=== PATIENT | male | born 1955 | race Caucasian/White ===

== ENCOUNTER → 2016-10-10 | Outpatient (CLI) | payer OTHER ==
[~2016-10-10] MED LIST: 'PARAFON FORTE500 M1 PO; ACULAR 3 ML3 M1 OP; ANAPROX DS550 MG PO; ATIVAN1 MG PO; CLARITIN LIQUI-10 MG PO; HYDROCODONE BIT1 T11 PO; KEFLEX500 M1 PO; LISINOPRIL5 MG PO; METOPROLOL SUC100 M1 PO; NAPROSYN500 MG PO; NKHM; NORCO 10-325 T1 EACH PO; NORCO 5-325 TA1 EACH PO; NORFLEX100 MG PO; Tobrex Ophth S2.5 ML OPH; VICODIN 5/500 505 MG PO; VITAMIN D50000 UNIT PO
== END | disposition home or self-care (01) ==
LOC: RAD 09:37
DX: M51.36 Other intervertebral disc degeneration, lumbar region (principal); M47.896 Other spondylosis, lumbar region; G89.29 Other chronic pain

== ENCOUNTER → 2016-11-02 | Outpatient (CLI) | payer OTHER | LOC: CT 09:55 | DX: M51.26 Other intervertebral disc displacement, lumbar region (principal); M48.07 Spinal stenosis, lumbosacral region; M48.05 Spinal stenosis, thoracolumbar region; M96.1 Postlaminectomy syndrome, not elsewhere classified; Z91.81 History of falling ==

== ENCOUNTER → 2017-01-06 | Outpatient (CLI) | payer OTHER | END | disposition home or self-care (01) | LOC: MRI 08:48 | DX: Z01.818 Encounter for other preprocedural examination (principal); M47.896 Other spondylosis, lumbar region; M51.27 Other intervertebral disc displacement, lumbosacral region; M48.061 Spinal stenosis, lumbar region without neurogenic claudication ==

== ENCOUNTER 2017-05-02 09:15 | Inpatient (IN) | payer OTHER ==
[2017-05-02] VITALS (9 sets, daily range): BP systolic 112–150; BP diastolic 61–97
[~2017-05-02] VITALS: Ht 178 cm; Wt 100.0 kg
[2017-05-02] MEDS ORDERED: TOPROL XL50 M1 PO (09:28)
[2017-05-02] MEDS ORDERED: CLARITIN10 MG PO (09:29)
[2017-05-02] MEDS ORDERED: LOSARTAN-HCTZ1 EAC1 PO (09:29)
[2017-05-02 10:03] LABS: BASO # 0.2 10*3/uL (0.0-0.1); BASO % 1.2 % (0.0-1.0); EOS # 1.7 10*3/uL (0.0-0.4); EOS % 14.3 % (1.0-4.0); HEMATOCRIT 47.4 % (42.0-52.0); LYMPH # 3.3 10*3/uL (1.3-4.4); LYMPH % 27.1 % (27.0-41.0); MEAN CORPUSCULAR HGB 30.9 pg (27.0-31.0); MEAN CORPUSCULAR HGB CONC 35.9 g/dl (33.0-37.0); MEAN PLATELET VOLUME 11.1 fl (9.6-12.3); MONO % 8.2 % (3.0-9.0); NEUT # 5.9 10*3/uL (2.3-7.9); PLATELET COUNT AUTOMATED 241 10*3/uL (130-400); RED BLOOD COUNT 5.51 10*6/uL (4.50-5.90); RED CELL DISTRI WIDTH 12.9 % (0-14.5); WHITE BLOOD COUNT 12.1 10*3/uL (4.8-10.8)
[2017-05-02 10:17] LABS: ALBUMIN 3.5 gm/dl (3.1-4.5); ALKALINE PHOSPHATASE 48 U/L (45-117); BUN 19 mg/dl (7-24); CHLORIDE 105 mmol/L (98-107); CREATININE 1.21 mg/dL (0.70-1.30); LIPASE 172 U/L (73-393); POTASSIUM 3.8 mmol/L (3.5-5.1); SGOT/AST 16 IU/L (3-35); SGPT/ALT 34 U/L (12-78); SODIUM 140 mmol/L (136-145); TOTAL PROTEIN 6.8 gm/dL (6.4-8.2)
[2017-05-02 10:20] LABS: BILIRUBIN NEGATIVE (NEGATIVE); BLOOD NEGATIVE (NEGATIVE); CLARITY CLEAR (CLEAR); COLOR YELLOW (YELLOW); GLUCOSE NEGATIVE (NEGATIVE); KETONE NEGATIVE (NEGATIVE); LEUKO ESTERASE NEGATIVE (NEGATIVE); NITRITE NEGATIVE (NEGATIVE); SPECIFIC GRAVITY >= 1.030 (1.005-1.030); UROBILINOGEN 0.2 E.U./dl (0.2-1.0)
[2017-05-02 10:27] LABS: RBC 0-2 rbc/hpf (0-2); WBC 0-2 wbc/hpf (0-5)
[2017-05-03] VITALS (10 sets, daily range): BP systolic 112–146; BP diastolic 60–92
[2017-05-03 07:06] LABS: BASO # 0.1 10*3/uL (0.0-0.1); BASO % 1.2 % (0.0-1.0); EOS # 1.4 10*3/uL (0.0-0.4); HEMATOCRIT 45.1 % (42.0-52.0); HEMOGLOBIN 15.8 g/dl (14.0-18.0); LYMPH # 2.6 10*3/uL (1.3-4.4); LYMPH % 29.6 % (27.0-41.0); MEAN CELL VOLUME 87.2 fl (80.0-94.0); MEAN CORPUSCULAR HGB 30.6 pg (27.0-31.0); MEAN PLATELET VOLUME 11.5 fl (9.6-12.3); MONO # 0.8 10*3/uL (0.1-1.0); MONO % 9.4 % (3.0-9.0); NEUT # 3.9 10*3/uL (2.3-7.9); NEUT % 43.6 % (47.0-73.0); PLATELET COUNT AUTOMATED 186 10*3/uL (130-400); RED BLOOD COUNT 5.17 10*6/uL (4.50-5.90); RED CELL DISTRI WIDTH 13.2 % (0-14.5); WHITE BLOOD COUNT 8.9 10*3/uL (4.8-10.8)
[2017-05-03 07:35] LABS: BUN 12 mg/dl (7-24); CHLORIDE 108 mmol/L (98-107); CREATININE 1.08 mg/dL (0.70-1.30); PHOSPHOROUS 2.2 mg/dL (2.5-4.9); POTASSIUM 3.8 mmol/L (3.5-5.1); SGOT/AST 17 IU/L (3-35); SGPT/ALT 33 U/L (12-78); SODIUM 142 mmol/L (136-145); TOTAL PROTEIN 5.8 gm/dL (6.4-8.2); TRIGLYCERIDES 121 mg/dl (<150); VLDL CHOLESTEROL 24 mg/dL (6-40)
[2017-05-03 07:39] LABS: ALKALINE PHOSPHATASE 38 U/L (45-117); CHOLESTEROL 118 mg/dL (<200); FREE T4 0.91 ng/dl (0.76-1.46); HDL CHOLESTEROL 37 mg/dl (40-60); LDL CHOLESTEROL 57 mg/dL (9-159)
[2017-05-03 08:25] LABS: VITAMIN D, 25-HYDROXY 22.8 ng/mL (30-100)
[2017-05-03] MEDS ORDERED: NORCO 5-325 TA1 EACH PO (15:24)
== END 2017-05-03 15:50 | disposition home or self-care (01) | DRG 419 ==
LOC: ED 09:15 → EDHOLD 13:40 → 5E 13:40
PROVIDERS: Physician Assistant; Registered Nurse
PROC: 0FT44ZZ Resection of Gallbladder, Percutaneous Endoscopic Approach (ICD-10-PCS; principal; 2017-05-03)
PROC: BF131ZZ Fluoroscopy of Gallbladder and Bile Ducts using Low Osmolar Contrast (ICD-10-PCS; 2017-05-03)
DX: K80.66 Calculus of gallbladder and bile duct with acute and chronic cholecystitis without obstruction (principal); K76.0 Fatty (change of) liver, not elsewhere classified; D72.829 Elevated white blood cell count, unspecified; F12.90 Cannabis use, unspecified, uncomplicated; I10 Essential (primary) hypertension; M54.9 Dorsalgia, unspecified; F41.9 Anxiety disorder, unspecified; G89.29 Other chronic pain; Z82.0 Family history of epilepsy and other diseases of the nervous system; Z72.0 Tobacco use; Z72.89 Other problems related to lifestyle; Z88.8 Allergy status to other drugs, medicaments and biological substances; Z79.899 Other long term (current) drug therapy; Z82.49 Family history of ischemic heart disease and other diseases of the circulatory system

== ENCOUNTER → 2017-08-11 | Outpatient (CLI) | payer OTHER ==
[~2017-08-11] MED LIST changes: +CLARITIN10 MG PO; +LOSARTAN-HCTZ1 EAC1 PO; +TOPROL XL50 M1 PO
== END | disposition home or self-care (01) ==
LOC: LAB 10:15
PROVIDERS: Nurse Practitioner Primary Care
DX: R60.9 Edema, unspecified (principal); R21 Rash and other nonspecific skin eruption; W57.XXXA Bitten or stung by nonvenomous insect and other nonvenomous arthropods, initial encounter

== ENCOUNTER → 2017-09-19 | Outpatient (CLI) | payer OTHER ==
[~2017-09-19] MED LIST changes: +ACULAR 0.5%3 ML OPH
== END | disposition home or self-care (01) ==
LOC: ORTHO 03:28
DX: M19.032 Primary osteoarthritis, left wrist (principal)

== ENCOUNTER → 2017-09-25 | Outpatient (CLI) | payer OTHER | END | disposition home or self-care (01) | LOC: RAD 09:05 | DX: M18.12 Unilateral primary osteoarthritis of first carpometacarpal joint, left hand (principal) ==

== ENCOUNTER 2017-09-28 18:19 | Emergency (ER) | payer OTHER ==
[~2017-09-28] VITALS: Ht 177.8 cm; Wt 95.3 kg
[~2017-09-28 18:19] MED LIST changes: -ACULAR 0.5%3 ML OPH
== END 2017-09-28 18:56 | disposition home or self-care (01) ==
LOC: ED 18:19
DX: T15.81XA Foreign body in other and multiple parts of external eye, right eye, initial encounter (principal); F17.200 Nicotine dependence, unspecified, uncomplicated; F12.10 Cannabis abuse, uncomplicated; G89.29 Other chronic pain; I10 Essential (primary) hypertension; Z79.899 Other long term (current) drug therapy; Z88.8 Allergy status to other drugs, medicaments and biological substances; X58.XXXA Exposure to other specified factors, initial encounter; Y93.89 Activity, other specified; Y92.89 Other specified places as the place of occurrence of the external cause; Y99.9 Unspecified external cause status

== ENCOUNTER 2017-10-15 12:17 | Emergency (ER) | payer OTHER ==
[~2017-10-15] VITALS: Ht 177.8 cm; Wt 95.3 kg
[2017-10-15] MEDS ORDERED: Tobrex Ophth S2.5 ML OPH (13:27)
[2017-10-15] MEDS ORDERED: ACULAR 0.5%3 ML OPH (13:27)
== END 2017-10-15 13:32 | disposition home or self-care (01) ==
LOC: ED 12:17
DX: T15.01XA Foreign body in cornea, right eye, initial encounter (principal); F17.200 Nicotine dependence, unspecified, uncomplicated; F12.10 Cannabis abuse, uncomplicated; Z79.899 Other long term (current) drug therapy; Z88.8 Allergy status to other drugs, medicaments and biological substances; X58.XXXA Exposure to other specified factors, initial encounter; Y93.89 Activity, other specified; Y92.89 Other specified places as the place of occurrence of the external cause; Y99.9 Unspecified external cause status

== ENCOUNTER → 2017-10-19 | Outpatient (CLI) | payer OTHER ==
[~2017-10-19] MED LIST changes: +ACULAR 0.5%3 ML OPH
== END | disposition home or self-care (01) ==
LOC: MRI 09:38
DX: Z01.818 Encounter for other preprocedural examination (principal); M18.12 Unilateral primary osteoarthritis of first carpometacarpal joint, left hand; M67.432 Ganglion, left wrist

== ENCOUNTER → 2018-03-01 | Outpatient (CLI) | payer OTHER ==
[2018-03-01 08:07] LABS: HEMATOCRIT 49.6 % (42.0-52.0); HEMOGLOBIN 17.4 g/dl (14.0-18.0); MEAN CORPUSCULAR HGB 30.5 pg (27.0-31.0); MEAN CORPUSCULAR HGB CONC 35.1 g/dl (33.0-37.0); MEAN PLATELET VOLUME 10.9 fl (9.6-12.3); PLATELET COUNT AUTOMATED 227 10*3/uL (130-400); RED CELL DISTRI WIDTH 13.1 % (0-14.5); WHITE BLOOD COUNT 10.5 10*3/uL (4.8-10.8)
[2018-03-01 08:58] LABS: ATYPICAL LYMPHS 3 % (0-0); BASOPHILS 3 % (0-1); TOTAL CELLS COUNTED 100 #CELLS
[2018-03-01 08:59] LABS: PLATELET SUFFICIENCY NORMAL (NORMAL)
== END | disposition home or self-care (01) ==
LOC: LAB 07:50
PROVIDERS: Nurse Practitioner Primary Care
DX: D72.810 Lymphocytopenia (principal)

== ENCOUNTER → 2018-10-25 | Outpatient (CLI) | payer OTHER ==
[~2018-10-25] MED LIST changes: +ZOFRAN4 MG PO
== END | disposition home or self-care (01) ==
LOC: RAD 07:14
DX: M25.511 Pain in right shoulder (principal)

== ENCOUNTER 2019-03-16 08:15 | Emergency (ER) | payer MEDICARE ==
[~2019-03-16] VITALS: Ht 177.8 cm; Wt 89.4 kg
[2019-03-16 08:54] LABS: BASO # 0.1 10*3/uL (0.0-0.1); BASO % 0.8 % (0.0-1.0); EOS # 0.6 10*3/uL (0.0-0.4); EOS % 4.6 % (1.0-4.0); HEMATOCRIT 49.3 % (42.0-52.0); HEMOGLOBIN 17.1 g/dl (14.0-18.0); LYMPH # 2.9 10*3/uL (1.3-4.4); LYMPH % 21.7 % (27.0-41.0); MEAN CELL VOLUME 89.2 fl (80.0-94.0); MEAN CORPUSCULAR HGB 30.9 pg (27.0-31.0); MEAN CORPUSCULAR HGB CONC 34.7 g/dl (33.0-37.0); MONO # 1.4 10*3/uL (0.1-1.0); MONO % 10.8 % (3.0-9.0); NEUT # 8.2 10*3/uL (2.3-7.9); NEUT % 61.8 % (47.0-73.0); PLATELET COUNT AUTOMATED 247 10*3/uL (130-400); RED BLOOD COUNT 5.53 10*6/uL (4.50-5.90); RED CELL DISTRI WIDTH 12.7 % (0-14.5); WHITE BLOOD COUNT 13.2 10*3/uL (4.8-10.8)
[2019-03-16 09:10] LABS: ALBUMIN 3.3 gm/dl (3.1-4.5); ALKALINE PHOSPHATASE 56 U/L (45-117); BUN 18 mg/dl (7-24); CHLORIDE 106 mmol/L (98-107); CREATININE 0.98 mg/dL (0.70-1.30); POTASSIUM 3.8 mmol/L (3.5-5.1); SGOT/AST 17 IU/L (3-35); SGPT/ALT 47 U/L (12-78); SODIUM 139 mmol/L (136-145); TOTAL PROTEIN 6.9 gm/dL (6.4-8.2)
[2019-03-16] MEDS ORDERED: PERCOCET 5-3251 EACH PO (10:59)
== END 2019-03-16 11:04 | disposition home or self-care (01) ==
LOC: ED 08:15
PROVIDERS: Emergency Medicine
DX: G89.18 Other acute postprocedural pain (principal); M25.532 Pain in left wrist; L53.9 Erythematous condition, unspecified; L29.9 Pruritus, unspecified; G89.29 Other chronic pain; I10 Essential (primary) hypertension; F17.200 Nicotine dependence, unspecified, uncomplicated; Z88.8 Allergy status to other drugs, medicaments and biological substances; Z79.899 Other long term (current) drug therapy; Z79.2 Long term (current) use of antibiotics

== ENCOUNTER 2019-10-13 21:36 | Emergency (ER) | payer OTHER, MEDICAID ==
[~2019-10-13] VITALS: Ht 177.8 cm; Wt 99.3 kg
[~2019-10-13 21:36] MED LIST changes: +PERCOCET 5-3251 EACH PO
== END 2019-10-13 22:18 | disposition home or self-care (01) ==
LOC: ED 21:36
DX: S05.02XA Injury of conjunctiva and corneal abrasion without foreign body, left eye, initial encounter (principal); I10 Essential (primary) hypertension; F41.9 Anxiety disorder, unspecified; Z88.8 Allergy status to other drugs, medicaments and biological substances; Z87.891 Personal history of nicotine dependence; Z79.899 Other long term (current) drug therapy; X58.XXXA Exposure to other specified factors, initial encounter; Y93.89 Activity, other specified; Y92.89 Other specified places as the place of occurrence of the external cause; Y99.8 Other external cause status

== ENCOUNTER → 2019-11-13 | Outpatient (CLI) | payer OTHER, MEDICAID | END | disposition home or self-care (01) | LOC: RAD 09:37 | DX: M48.02 Spinal stenosis, cervical region (principal) ==

== ENCOUNTER → 2020-01-09 | Outpatient (CLI) | payer OTHER, MEDICAID | END | disposition home or self-care (01) | LOC: MRI 00:21 | PROVIDERS: ATTEND Orthopaedic Surgery Orthopaedic Surgery of the Spine | DX: M50.122 Cervical disc disorder at C5-C6 level with radiculopathy (principal) ==

== ENCOUNTER 2020-12-04 11:21 | Emergency (ER) | payer OTHER, MEDICAID ==
[~2020-12-04] VITALS: Ht 177.8 cm; Wt 102.1 kg
[2020-12-04 12:28] LABS: BASO # 0.1 10*3/uL (0.0-0.1); BASO % 1.5 % (0.0-1.0); EOS % 11.7 % (1.0-4.0); HEMATOCRIT 47.7 % (42.0-52.0); LYMPH # 2.5 10*3/uL (1.3-4.4); LYMPH % 29.7 % (27.0-41.0); MEAN CORPUSCULAR HGB 30.4 pg (27.0-31.0); MEAN CORPUSCULAR HGB CONC 34.2 g/dl (33.0-37.0); MEAN PLATELET VOLUME 10.8 fl (9.6-12.3); MONO # 0.8 10*3/uL (0.1-1.0); MONO % 9.7 % (3.0-9.0); NEUT # 3.9 10*3/uL (2.3-7.9); NEUT % 46.9 % (47.0-73.0); PLATELET COUNT AUTOMATED 197 10*3/uL (130-400); RED BLOOD COUNT 5.36 10*6/uL (4.50-5.90); RED CELL DISTRI WIDTH 12.8 % (0-14.5); WHITE BLOOD COUNT 8.3 10*3/uL (4.8-10.8)
[2020-12-04 12:50] LABS: ALBUMIN 3.5 gm/dl (3.1-4.5); ALKALINE PHOSPHATASE 52 U/L (45-117); BUN 20 mg/dl (7-24); CHLORIDE 106 mmol/L (98-107); LIPASE 112 U/L (73-393); POTASSIUM 3.9 mmol/L (3.5-5.1); SGOT/AST 18 IU/L (3-35); SGPT/ALT 50 U/L (12-78); SODIUM 138 mmol/L (136-145); TOTAL PROTEIN 6.8 gm/dL (6.4-8.2)
[2020-12-04 12:51] LABS: TROPONIN I < 0.015 ng/ml (<0.045)
[2020-12-04] MEDS ORDERED: CLONIDINE HCL0.1 MG PO (13:06)
[2020-12-04] MEDS ORDERED: PROTONIX40 MG PO (13:06)
== END 2020-12-04 13:15 | disposition home or self-care (01) ==
LOC: ED 11:21
PROVIDERS: Family Medicine
DX: I16.0 Hypertensive urgency (principal); F17.200 Nicotine dependence, unspecified, uncomplicated; Z88.8 Allergy status to other drugs, medicaments and biological substances; Z79.899 Other long term (current) drug therapy

== ENCOUNTER 2021-01-08 08:24 | Emergency (ER) | payer OTHER, MEDICAID ==
[~2021-01-08] VITALS: Wt 104.3 kg
[~2021-01-08 08:24] MED LIST changes: +CLONIDINE HCL0.1 MG PO; +PROTONIX40 MG PO
[2021-01-08 10:07] LABS: BASO # 0.1 10*3/uL (0.0-0.1); EOS # 0.6 10*3/uL (0.0-0.4); HEMATOCRIT 47.6 % (42.0-52.0); LYMPH # 1.8 10*3/uL (1.3-4.4); LYMPH % 18.9 % (27.0-41.0); MEAN CELL VOLUME 88.6 fl (80.0-94.0); MEAN CORPUSCULAR HGB 29.8 pg (27.0-31.0); MEAN CORPUSCULAR HGB CONC 33.6 g/dl (33.0-37.0); MEAN PLATELET VOLUME 10.9 fl (9.6-12.3); MONO # 0.9 10*3/uL (0.1-1.0); MONO % 9.2 % (3.0-9.0); NEUT % 64.5 % (47.0-73.0); PLATELET COUNT AUTOMATED 205 10*3/uL (130-400); RED BLOOD COUNT 5.37 10*6/uL (4.50-5.90); RED CELL DISTRI WIDTH 12.5 % (0-14.5); WHITE BLOOD COUNT 9.4 10*3/uL (4.8-10.8)
[2021-01-08 10:21] LABS: ACT PARTIAL THROMBO TIME 25.4 SECONDS (20.0-32.1)
[2021-01-08 10:25] LABS: ALBUMIN 3.5 gm/dl (3.1-4.5); ALKALINE PHOSPHATASE 56 U/L (45-117); BUN 17 mg/dl (7-24); CHLORIDE 107 mmol/L (98-107); CREATININE 1.12 mg/dL (0.70-1.30); POTASSIUM 4.1 mmol/L (3.5-5.1); SGOT/AST 17 IU/L (3-35); SGPT/ALT 45 U/L (12-78); SODIUM 139 mmol/L (136-145); TOTAL PROTEIN 6.9 gm/dL (6.4-8.2)
[2021-01-08 10:27] LABS: TROPONIN I < 0.015 ng/ml (<0.045)
[2021-01-08] MEDS ORDERED: CYCLOBENZAPRINE10 MG PO (11:18)
[2021-01-08] MEDS ORDERED: NAPROXEN250 MG PO (11:18)
== END 2021-01-08 12:00 | disposition home or self-care (01) ==
LOC: ED 08:24
PROVIDERS: Emergency Medicine
DX: M54.6 Pain in thoracic spine (principal); I10 Essential (primary) hypertension; Z88.8 Allergy status to other drugs, medicaments and biological substances; Z79.899 Other long term (current) drug therapy

== ENCOUNTER 2021-05-11 08:44 | Emergency (ER) | payer OTHER, MEDICAID ==
[~2021-05-11] VITALS: Wt 108.5 kg
[~2021-05-11 08:44] MED LIST changes: +CYCLOBENZAPRINE10 MG PO; +NAPROXEN250 MG PO
== END 2021-05-11 09:01 ==
LOC: ED 08:44
DX: I46.9 Cardiac arrest, cause unspecified (principal); Z88.8 Allergy status to other drugs, medicaments and biological substances; Z79.899 Other long term (current) drug therapy; Z87.891 Personal history of nicotine dependence